=== PATIENT | female | born 1955 | race Caucasian/White ===

== ENCOUNTER 2017-05-26 10:00 | Outpatient (CLI) | payer BC | END 2017-05-26 13:55 | LOC: D.MAMMO 10:00 | DX: Z12.31 Encounter for screening mammogram for malignant neoplasm of breast (principal) ==

== ENCOUNTER → 2017-10-10 15:50 | Outpatient (CLI) | payer BC | END | disposition home or self-care (01) | LOC: D.RAD 15:50 | DX: S46.911A Strain of unspecified muscle, fascia and tendon at shoulder and upper arm level, right arm, initial encounter (principal) ==

== ENCOUNTER 2018-06-01 06:10 | Outpatient (CLI) | payer MEDICAID | END 2018-06-01 23:59 | disposition home or self-care (01) | LOC: D.MAMMO 06:10 | DX: Z12.31 Encounter for screening mammogram for malignant neoplasm of breast (principal) ==

== ENCOUNTER 2019-07-14 09:00 | Outpatient (CLI) | payer MEDICAID | END 2019-07-14 10:00 | disposition home or self-care (01) | LOC: D.MAMMO 09:00 | PROVIDERS: ATTEND Family Medicine | DX: Z12.31 Encounter for screening mammogram for malignant neoplasm of breast (principal) ==